=== PATIENT | female | born 1980 | race Caucasian/White ===

== ENCOUNTER → 2020-03-02 11:16 | Outpatient (CLI) | payer OTHER, SELFPAY ==
[2020-03-02 13:30] LABS: Hematocrit 36.8 % (36-46); Hemoglobin 12.3 g/dL (12.0-16.0)
[2020-03-02 14:15] LABS: GTT (PREG) 1 Hour PP 50gm Dose 140 mg/dL (76-139)
== END ==
PROVIDERS: Referring Provider Obstetrics & Gynecology; Visit Provider Obstetrics & Gynecology
DX: Z34.90 Encounter for supervision of normal pregnancy, unspecified, unspecified trimester (principal)
CPT/HCPCS: 36415; 82950; 85014; 85018

== ENCOUNTER → 2020-03-10 07:09 | Outpatient (CLI) | payer OTHER, SELFPAY ==
[2020-03-10 09:54] LABS: Glucose 1 Hour Gest 157 mg/dL (76-180)
[2020-03-10 10:31] LABS: Glucose Fasting Gestational 68 mg/dL (76-95)
[2020-03-10 10:32] LABS: Glucose 2 Hour Gest 121 mg/dL (76-155)
[2020-03-10 11:01] LABS: Glucose Tol Interp,Gestational INTERPRETATION
[2020-03-10 12:12] LABS: Glucose 3 Hour Gest 96 mg/dL (76-140)
== END ==
PROVIDERS: Referring Provider Obstetrics & Gynecology; Visit Provider Obstetrics & Gynecology
DX: O99.810 Abnormal glucose complicating pregnancy (principal)
CPT/HCPCS: 36415; 82951; 82952

== ENCOUNTER → 2020-05-05 11:01 | Outpatient (CLI) | payer OTHER, SELFPAY ==
[2020-05-06 08:13] LABS: Strep Grp B PCR NEG for Grp B Strep
== END ==
PROVIDERS: PCP Obstetrics & Gynecology; Visit Provider Obstetrics & Gynecology
DX: Z34.83 Encounter for supervision of other normal pregnancy, third trimester (principal); Z3A.36 36 weeks gestation of pregnancy
CPT/HCPCS: 87653

== ENCOUNTER → 2020-05-21 08:16 | Outpatient (CLI) | payer OTHER, SELFPAY ==
[2020-05-22 02:26] LABS: COVID19 Sendout Not Detected (Not Detect)
== END ==
PROVIDERS: PCP Obstetrics & Gynecology; Visit Provider Physician Assistant
DX: Z11.59 Encounter for screening for other viral diseases (principal)
CPT/HCPCS: 87635

== ENCOUNTER 2020-05-24 19:16 | Inpatient (IN) | payer OTHER, SELFPAY ==
[2020-05-24 20:12] LABS: Add Manual Diff / Slide Review NO; Basophils Absolute Auto 0 /uL (0-100); Basophils Percent Auto 0.4 % (0-2); Eosinophils Absolute Auto 100 /uL (0-450); Eosinophils Percent Auto 0.6 % (2-4); Hematocrit 38.7 % (36-46); Hemoglobin 13.3 g/dL (12.0-16.0); Lymphocytes Absolute Auto 1700 /uL (1100-4500); Lymphocytes Percent Auto 17.9 % (25-40); Mean Corpuscular HGB Conc 34.3 % (30-36); Mean Corpuscular Hemoglobin 34.3 PG (26-34); Mean Corpuscular Volume 100.1 fL (80-100); Monocytes Absolute Auto 800 /uL (0-900); Monocytes Percent Auto 8.1 % (3-14); Neutrophils Absolute Auto 7100 /uL (1500-7000); Platelet Count 212 X10^3/uL (150-400); Red Blood Cell Count 3.87 X10^6/uL (4.0-5.2); Red Cell Distribution Width 13.2 % (11.6-14.8); White Blood Cell Count 9.7 X10^3/uL (4.5-11.0)
[2020-05-24] MEDS: miSOPROStoL 25 MCG TABLET VAG (20:52)
[2020-05-25 01:32] VITALS: BP 111/62
[2020-05-25] MEDS: LACTATED RINGERS 1,000 ML 125 ML IV ×3 (07:53→18:01)
[2020-05-25] MEDS: OXYTOCIN PREMIX 30 UNIT/500 ML PLAST..BAG IV (07:53)
--- NOTE | 2020-05-25 20:07 | P.HPOB_ITS ---
OB HPI Date/Time Date of admission: 05/24/20 Date Patient Seen: 05/25/20 Time Patient Seen: 07:15 History of Present Condition Chief complaint: Induction of Labor : 4 Para: 1 Estimated Date of Delivery: 05/28/20 Estimated Gestational Age (weeks): 39+4 Narrative: Nyasia Colvin is a 39 year old female 4 para 1 at 39-,4/7 weeks gestation status post cervical ripening with Cytotec x1 last evening, here for Pitocin induction of labor due to advanced maternal age. Indications Indication for induction OB: other (Advanced maternal age) History of Present care: good care, initiated at week # (9), number of visits (11) and pounds weight gain (34) Dating criteria: LMP confirmed by 1st trimester US Ultrasounds: normal 1st trimester US and normal mid trimester US Obstetrical complications: none Medical complications: none Preadmission Labs Blood type: A (+) positive -: Antibody screen: negative, GBS status: negative, HBsAG: negative, HIV: negative and RPR/VDLR: negative -: Chlamydia screen: not detected and Gonorrhea screen: not detected -: Rubella: not immune and Varicella: unknown HCT: 38.7 PAP: Normal Cell-free DNA: Normal male AFP neg 1 hr GTT: 140 Prior (ies) History: 2 SAB 1 Evaluation Evaluation Baseline heart rate: 115 Variability: Moderate (11-25) monitor accelerations: Present monitor decelerations: Absent Contraction Frequency (minutes): 3 Uterine Contraction Intensity: Mild Category of Tracing: Reactive Cervical dilation (cm): 1 Cervical effacement (%): 80 station: -1 Laboratory results: Laboratory Tests 05/24/20 05/24/20 19:45 19:45 WBC 9.7 RBC 3.87 L Hgb 13.3 Hct 38.7 MCV 100.1 H MCH 34.3 H MCHC 34.3 RDW 13.2 Plt Count 212 Neut % (Auto) 73.0 Lymph % (Auto) 17.9 L [place] % (Auto) 8.1 Eos % (Auto) 0.6 L Baso % (Auto) 0.4 Neut # (Auto) 7100 H Lymph # (Auto) 1700 [place] # (Auto) 800 Eos # (Auto) 100 Baso # (Auto) 0 Blood Type A Positive Antibody Screen Negative PFSH Medical History (Updated 03/22/20 @ 19:22 by Anita Chow) Advanced maternal age risk, currently (Acute) Chicken pox (Resolved ~1984) Conceived by in vitro fertilization (Acute ~09/11/19) Headache (Chronic ~2018) Infertility (Resolved ~2017) Mammogram normal (Acute ~03/2019) (spontaneous vaginal delivery) (Acute ~01/26/10) Surgical History (Updated 03/22/20 @ 19:22 by Anita Chow) Anesthesia (Resolved) History of dilatation and curettage (Acute ~01/2009) In vitro fertilization (Resolved ~08/2019) Family History (Updated 03/22/20 @ 19:25 by Anita Chow) Father No problems noted. Mother No problems noted. Grandfather Diabetes mellitus MVA (motor vehicle accident) Recurrent strokes Grandmother No problems noted. 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: [employer] special reta needs: No do you feel safe at home: Yes Smoking Status: Never smoker Tobacco: How many years used: 15 second hand exposure: No alcohol intake: former (pre- : occasional ) substance use type: does not use Meds Home Medications and Allergies Home Medications Medication Instructions Recorded Confirmed Type aspirin 81 mg tablet,delayed 81 mg PO DAILY 02/17/20 05/25/20 History release Double Electric breast Pump and #1 each 03/05/20 05/25/20 Rx Supplies vitamin with calcium 1 tab PO DAILY #90 tab 05/05/20 05/25/20 Rx no.72-iron 27 mg-folic acid 1 mg tablet Allergies Allergy/AdvReac Type Severity Reaction Status Date / Time No Known Drug Allergies Allergy Verified 05/19/20 16:05 Exam Vital Signs (past 8 hours): Generally: Patient comfortable with contractions Lungs: Clear to auscultation bilaterally Cardiovascular: Regular rate and rhythm Fundal height: 40 cm Estimated weight: 7 lb Extremities: No edema, 1+ DTRs Objective Labs Result Diagrams: 05/24/20 19:45 Labs: Laboratory Results - last 24 hr 05/24/20 05/24/20 19:45 19:45 WBC 9.7 RBC 3.87 L Hgb 13.3 Hct 38.7 MCV 100.1 H MCH 34.3 H MCHC 34.3 RDW 13.2 Plt Count 212 Neut % (Auto) 73.0 Lymph % (Auto) 17.9 L [place] % (Auto) 8.1 Eos % (Auto) 0.6 L Baso % (Auto) 0.4 Neut # (Auto) 7100 H Lymph # (Auto) 1700 [place] # (Auto) 800 Eos # (Auto) 100 Baso # (Auto) 0 Blood Type A Positive Antibody Screen Negative Assessment and Plan Assessment and Plan Assessment and Plan narrative: Assessment: 39-year-old 4 para 1 at 39-,4/7 weeks gestation status post Cytotec x1, for Pitocin induction due to advanced maternal age GBS negative 1 hour glucose tolerance test 140, 3 hour glucose tolerance test normal Plan: Pitocin per protocol 2 Epidural as necessary Artificial rupture of membranes when able Expected management to spontaneous vaginal delivery Time Spent with Patient Total time spent with greater than 50% in coordination of care (as documented) a t patient's floor/unit and/or counseling patient:: 15-24 minutes
--- NOTE | 2020-05-25 20:15 | PM.OBPRVD ---
Events: Labor Induction Labor & Delivery Delivery date: 05/25/20 Cervical ripening method: per misoprostal protocol Induction method: per pitocin protocol Delivery augmentation: rupture of membranes Delivery monitor: external FHT and external uterine Route of delivery: Episiotomy description: None L&D Laceration Description: Superficial (Left labial) Delivery repair: chromic Estimated blood loss (mL): 150 Anesthesia type: Epidural Complications: None Narrative: Patient complete and pushed with 3 contractions. At 7:46 p.m., a live male delivered spontaneously in the KAL[facility] presentation, over an intact perineum. The remainder of the body delivered without difficulty. No nuchal cord. The was placed on mom's abdomen. After the cord stopped pulsing, the cord was double clamped and cut. Cord bloods were obtained. The placenta delivered intact with a three-vessel cord at 7:56 p.m.. Pitocin was given in the IV fluids prior to the placental delivery. A superficial left labial laceration was noted and repaired with 4-0 chromic in the usual fashion. Hemostasis was achieved. Estimated blood loss 150 cc. Apgars 9 at 1 minute and 9 at 5 minutes. . Epidural analgesia. Mom and infant stable to recovery. Baby 1: Infant gender: Male Presentation: vertex Placenta delivery description: Spontaneous cord vessel description: 3 Vessels score (1 min): 9 score (5 min): 9 Plan for aftercare: To routine care
[2020-05-25] MEDS: LANOLIN OINT 7 GM 1 APPLIC TOP (23:21)
[2020-05-25] MEDS: DERMOPLAST SPRAY 20% 60 ML 1 SPRAY TOP (23:21)
[2020-05-25] MEDS: IBUPROFEN 600 MG TABLET PO (23:22)
[2020-05-26 05:48] LABS: Hematocrit 35.6 % (36-46); Hemoglobin 12.2 g/dL (12.0-16.0)
[2020-05-26] MEDS: DOCUSATE 100 MG CAPSULE PO (07:53)
[2020-05-26 07:54] VITALS: TEMP 36.7
[2020-05-26] MEDS: PRENATAL VIT,CALC/IRON/FOLIC 1 TABLET 1 TAB PO (07:54)
[2020-05-26] MEDS: IBUPROFEN 600 MG TABLET PO ×2 (07:54→14:28)
[2020-05-26 12:30] VITALS: BP 129/85; PULSE 64; RESP 16; TEMP 36.9
[2020-05-26] MEDS: MEASLES,MUMPS,RUBELLA VACC/PF 0.5 ML VIAL SUBCUT (17:38)
== END 2020-05-26 18:00 | disposition home or self-care (01) | DRG 807 ==
PROVIDERS: Admitting Provider Obstetrics & Gynecology; PCP Obstetrics & Gynecology; Referring Provider Obstetrics & Gynecology; Visit Provider Obstetrics & Gynecology
DX: O70.0 First degree perineal laceration during delivery (principal); Z37.0 Single live birth; Z3A.39 39 weeks gestation of pregnancy
CPT/HCPCS: 36415; 59050; 59200; 59410; 85014; 85018; 85025; 86850; 86900; 86901; G0379; J2590

== ENCOUNTER → 2021-08-17 12:52 | Outpatient (CLI) | payer OTHER, SELFPAY ==
--- NOTE | 2021-08-17 13:00 | DI.US.S_ITS ---
PROCEDURE: US PELVIC COMPLETE INDICATIONS: IUD CHECK TECHNIQUE: Real-time scanning was performed of the pelvic organs, with image documentation. Additional endovaginal scanning was necessary due to incomplete visualization of the adnexal and endometrial structures by transabdominal scanning. COMPARISON: None. FINDINGS: Uterus: Uterus is retroverted and normal in size at 9.4 x 6.3 x 5.3 cm. The myometrium is homogeneous. The endometrium measures 1-2 mm combined thickness. The IUD is seen at its expected location. Ovaries: The right ovary measures 1.9 x 1.2 x 3 cm. The left ovary measures 3.3 x 1.6 x 3 cm. The ovaries have a normal sonographic appearance. Within the left ovary, there is a 2.3 x 1.6 x 1.2 cm complex cyst, with surrounding increased vascularity. No adnexal masses are seen. Other: No pathologic free abdominal or pelvic fluid. IMPRESSION: The IUD is seen in place. There is a likely 2.3 cm hemorrhagic cyst of the left ovary. If it would be clinically appropriate, a followup pelvic ultrasound could be considered in 6 weeks to assure resolution/ improvement. We strive to produce accurate, complete, and clear reports of imaging services. To assist us in improving patient care, this report was composed using standard report templates and voice recognition software. Therefore, it may contain abnormal punctuation, insertions and/or omissions. Occasional wrong-word or sound-alike substitutions may occur. Though we review the report and make efforts to correct it, we do recommend that the report be read carefully in proper context to recognize any text inaccuracies. Dictated by: Antonio Cardenas M.D. on 08/17/2021 at 13:39 Approved by: Antonio Cardenas M.D. on 08/17/2021 at 13:40
== END ==
PROVIDERS: PCP Registered Nurse Diabetes Educator; Referring Provider Registered Nurse Diabetes Educator; Visit Provider Registered Nurse Diabetes Educator
DX: Z97.5 Presence of (intrauterine) contraceptive device (principal)
CPT/HCPCS: 76830; 76856

== ENCOUNTER → 2021-09-08 09:26 | Outpatient (CLI) | payer OTHER, SELFPAY ==
--- NOTE | 2021-09-08 09:27 | DI.RAD.S_ITS ---
PROCEDURE: XR FOOT LT MIN 3V INDICATIONS: Left foot pain TECHNIQUE: 3 views of the foot were acquired. COMPARISON: None. FINDINGS: Bones: No fractures or dislocations. No suspicious bony lesions. Small plantar calcaneal enthesophyte. Accessory navicular and cuboid ossicle are seen. Soft tissues: No tibiotalar joint effusion. IMPRESSION: No acute osseous abnormality. Dictated by: Denilson Lewis M.D. on 09/08/2021 at 10:17 Approved by: Denilson Lewis M.D. on 09/08/2021 at 10:19
== END ==
PROVIDERS: PCP Registered Nurse Diabetes Educator; Referring Provider Registered Nurse Diabetes Educator; Visit Provider Registered Nurse Diabetes Educator
DX: M79.672 Pain in left foot (principal)
CPT/HCPCS: 73630

== ENCOUNTER → 2021-09-24 16:41 | Outpatient (CLI) | payer OTHER, SELFPAY ==
--- NOTE | 2021-09-24 16:43 | DI.MRI.S_ITS ---
PROCEDURE: MRFOOT LT WO CON INDICATIONS: left foot pain/accessory ossicles TECHNIQUE: Noncontrast sagittal T1 spin echo and T2 fast spin echo with fat saturation, long-axis T1 spin echo and T2 fast spin echo with fat saturation, short-axis T1 spin echo and T2 fast spin echo with fat saturation through the forefoot. COMPARISON: [facility], CR, XR FOOT LT MIN 3V, 09/08/2021, 9:18. FINDINGS: Image quality: Excellent. Bones and joints: There is osseous edema within the 2nd metatarsal shaft with a thin nondisplaced transverse linear fracture line in the proximal shaft. Surrounding soft tissue edema is seen and there is mild periosteal new bone formation. The alignment is anatomic. Mild osseous edema is seen within the base of the 3rd metatarsal as well as in these 2nd and 3rd cuneiform bones. The remaining visualized osseous structures are intact. Mild degenerative changes are seen at the 1st metatarsophalangeal joint. Soft tissues: The visualized plantar foot muscles demonstrate normal bulk. Soft tissue edema is seen surrounding the proximal 2nd metatarsal. Visualized flexor and extensor tendons appear intact, without tenosynovitis. The distal insertions of the peroneus brevis and longus tendons appear intact. The principal Lisfranc ligament appears intact. Trace adventitial bursal fluid collection plantar to the 1st metatarsophalangeal joint. Sagittal images demonstrate no evidence for plantar plate tears. IMPRESSION: Nondisplaced transverse fracture of the proximal 2nd metatarsal shaft with surrounding osseous and soft tissue edema and mild periosteal new bone formation, most likely secondary to repetitive stress. Mild osseous edema within the 2nd 3rd cuneiform is and the 3rd metatarsal base may be reactive or related to repetitive stress. Dictated by: Michele Coyne M.D. on 09/27/2021 at 9:05 Approved by: Michele Coyne M.D. on 09/27/2021 at 9:12
== END ==
PROVIDERS: PCP Registered Nurse Diabetes Educator; Referring Provider Registered Nurse Diabetes Educator; Visit Provider Registered Nurse Diabetes Educator
DX: S92.325A Nondisplaced fracture of second metatarsal bone, left foot, initial encounter for closed fracture (principal); M79.672 Pain in left foot
CPT/HCPCS: 73718

== ENCOUNTER → 2021-10-07 08:14 | Outpatient (CLI) | payer OTHER, SELFPAY ==
--- NOTE | 2021-10-07 08:17 | DI.US.S_ITS ---
PROCEDURE: US PELVIC COMPLETE INDICATIONS: ovarian cyst TECHNIQUE: Real-time scanning was performed of the pelvic organs, with image documentation. Additional endovaginal scanning was necessary due to incomplete visualization of the adnexal and endometrial structures by transabdominal scanning. COMPARISON: [facility], , US PELVIC COMPLETE, 08/17/2021, 13:01. FINDINGS: Uterus: Uterus is anteverted and measures 10.2 x 5 x 6.8 cm in size. The myometrium is homogeneous. The endometrium measures 9.4 mm combined thickness. Intrauterine device is noted in its normal central endometrial location. No endometrial mass or fluid is seen. Ovaries: The right ovary measures 3.1 x 2.2 x 2.8 cm. The left ovary measures 1.9 x 1.6 x 1.3 cm. The ovaries have a normal sonographic appearance. Less than 12 follicles can be seen in each ovary. No adnexal masses are seen. 1.9 x 2.1 x 2 cm simple cyst is seen in right ovary. Other: No pathologic free abdominal or pelvic fluid. IMPRESSION: 1. Enlarged uterus without discrete uterine fibroid. No endometrial mass or fluid. Intrauterine device is seen in its normal central endometrial location. 2. Simple cyst in right ovary as above. No solid appearing ovarian lesion normal appearing left ovary. We strive to produce accurate, complete, and clear reports of imaging services. To assist us in improving patient care, this report was composed using standard report templates and voice recognition software. Therefore, it may contain abnormal punctuation, insertions and/or omissions. Occasional wrong-word or sound-alike substitutions may occur. Though we review the report and make efforts to correct it, we do recommend that the report be read carefully in proper context to recognize any text inaccuracies. Dictated by: Juan Madrid M.D. on 10/07/2021 at 11:36 Approved by: Juan Madrid M.D. on 10/07/2021 at 11:45
== END ==
PROVIDERS: PCP Registered Nurse Diabetes Educator; Referring Provider Registered Nurse Diabetes Educator; Visit Provider Registered Nurse Diabetes Educator
DX: N83.291 Other ovarian cyst, right side (principal); N85.2 Hypertrophy of uterus; Z97.5 Presence of (intrauterine) contraceptive device
CPT/HCPCS: 76830; 76856

== ENCOUNTER → 2021-10-22 12:50 | Outpatient (CLI) | payer OTHER, SELFPAY ==
--- NOTE | 2021-10-22 12:51 | DI.MG.S_ITS ---
BILATERAL DIGITAL SCREENING MAMMOGRAM 3D/2D WITH CAD: 10/22/2021 CLINICAL: Routine screening. Comparison is made to exam dated: 03/20/2019 mammogram - out side. The tissue of both breasts is heterogeneously dense. This may lower the sensitivity of mammography. Current study was also evaluated with a Computer Aided Detection (CAD) system. No significant masses, calcifications, or other findings are seen in either breast. There has been no significant interval change. IMPRESSION: NEGATIVE There is no mammographic evidence of malignancy. A 1 year screening mammogram is recommended. This exam was interpreted at Station ID: [id number]. NOTE: For mammograms, a report in lay terms will be sent to the patient. Approximately 15% of breast malignancies will not be visualized mammographically. In the management of a palpable breast mass, a negative mammogram must not discourage biopsy of a clinically suspicious lesion. Electronically Signed By: Sanjuana hurtado/debra:10/25/2021 09:44:00 letter sent: Normal Exam ACR BI-RADS Category 1: Negative [id number]
== END ==
PROVIDERS: PCP Registered Nurse Diabetes Educator; Referring Provider Registered Nurse Diabetes Educator; Visit Provider Registered Nurse Diabetes Educator
DX: Z12.31 Encounter for screening mammogram for malignant neoplasm of breast (principal)
CPT/HCPCS: 77063; 77067

== ENCOUNTER → 2021-11-09 09:56 | Outpatient (CLI) | payer OTHER, SELFPAY | PROVIDERS: PCP Registered Nurse Diabetes Educator; Referring Provider Registered Nurse Diabetes Educator; Visit Provider Registered Nurse Diabetes Educator | DX: S92.325A Nondisplaced fracture of second metatarsal bone, left foot, initial encounter for closed fracture (principal); X58.XXXA Exposure to other specified factors, initial encounter | CPT/HCPCS: 77080 ==

== ENCOUNTER → 2022-10-03 11:16 | Outpatient (CLI) | payer OTHER, SELFPAY ==
--- NOTE | 2022-10-03 | DI.MG.S_ITS ---
BILATERAL DIGITAL SCREENING MAMMOGRAM 3D/2D WITH CAD: 10/03/2022 CLINICAL: Routine screening. Comparison is made to exams dated: 10/22/2021 mammogram - [facility] and [facility]20/[facility]. Both breasts are heterogeneously dense, which may obscure small masses (category c / 51-75% glandular tissue). Current study was also evaluated with a Computer Aided Detection (CAD) system. No significant masses, calcifications, or other findings are seen in either breast. There has been no significant interval change. IMPRESSION: NEGATIVE There is no mammographic evidence of malignancy. A 1 year screening mammogram is recommended. Based on the Tyrer Cuzick model (a risk assessment model) the patient's lifetime risk is 13.7% and her 10 year risk is 2.2%. According to the ACR, ACS, and NCCN guidelines, an annual breast MRI exam along with mammogram is recommended if the patient's lifetime risk is 20% or greater. This exam was interpreted at Station ID: [id number]. NOTE: For mammograms, a report in lay terms will be sent to the patient. Approximately 15% of breast malignancies will not be visualized mammographically. In the management of a palpable breast mass, a negative mammogram must not discourage biopsy of a clinically suspicious lesion. Electronically Signed By: Gilberto joseph/debra:10/03/2022 14:32:04 letter sent: Normal Exam ACR BI-RADS Category 1: Negative [id number]
== END ==
PROVIDERS: PCP Registered Nurse Diabetes Educator; Referring Provider Registered Nurse Diabetes Educator; Visit Provider Registered Nurse Diabetes Educator
DX: Z12.31 Encounter for screening mammogram for malignant neoplasm of breast (principal)
CPT/HCPCS: 77063; 77067

== ENCOUNTER → 2023-05-24 08:02 | Outpatient (CLI) | payer OTHER, SELFPAY ==
[2023-05-24 08:51] LABS: Hematocrit 39.8 % (36-46); Hemoglobin 13.7 g/dL (12.0-16.0); Mean Corpuscular HGB Conc 34.3 % (30-36); Mean Corpuscular Hemoglobin 34.1 PG (26-34); Mean Corpuscular Volume 99.5 fL (80-100); Platelet Count 266 X10^3/uL (150-400); Red Cell Distribution Width 12.9 % (11.6-14.8); White Blood Cell Count 5.3 X10^3/uL (4.5-11.0)
[2023-05-24 09:14] LABS: Hemoglobin A1C% w Est Avg Glu 5.1 % (4.0-6.0)
[2023-05-24 09:15] LABS: Alanine Aminotransferase 19 IU/L (<35); Albumin Globulin Ratio 1.3 (1.0-2.8); Alkaline Phosphatase 57 U/L (38-126); Aspartate Aminotransferase 23 IU/L (14-36); BUN Creatinine Ratio 21.3 (6-22); Bilirubin Total 0.4 mg/dL (0.2-1.3); Blood Urea Nitrogen 16 mg/dL (7-17); Calcium 9.5 mg/dL (8.4-10.2); Carbon Dioxide 24 mmol/L (22-32); Chloride 102 mmol/L (98-107); Cholesterol 179 mg/dL (140-199); Estimated Glomerular Filt Rate > 60 mL/min (>60); Glucose 87 mg/dL (70-100); HDL Cholesterol 83 mg/dL (40-60); HEMOLYSIS 23 (0-50); LDL Cholesterol Calculated 85 mg/dL (<100); Sodium 135 mmol/L (137-145); Triglycerides 56 mg/dL (35-150)
[2023-05-24 09:17] LABS: Potassium 5.7 mmol/L (3.4-5.1)
[2023-05-24 09:33] LABS: Free T4, Direct Thyroxine 0.95 ng/dL (0.78-2.19)
[2023-05-24 09:47] LABS: Thyroid Stimulating Hormone 2.43 uIU/mL (0.47-4.68)
== END ==
PROVIDERS: PCP Registered Nurse Diabetes Educator; Referring Provider Registered Nurse Diabetes Educator; Visit Provider Registered Nurse Diabetes Educator
DX: R53.83 Other fatigue (principal); R45.86 Emotional lability; F41.9 Anxiety disorder, unspecified
CPT/HCPCS: 36415; 80053; 80061; 83036; 84439; 84443; 85027

== ENCOUNTER → 2023-05-29 13:45 | Outpatient (CLI) | payer OTHER, SELFPAY ==
[2023-05-29 14:58] LABS: BUN Creatinine Ratio 20.7 (6-22); Blood Urea Nitrogen 19 mg/dL (7-17); Calcium 9.4 mg/dL (8.4-10.2); Carbon Dioxide 27 mmol/L (22-32); Chloride 99 mmol/L (98-107); Estimated Glomerular Filt Rate > 60 mL/min (>60); Glucose 80 mg/dL (70-100); HEMOLYSIS < 15 (0-50); Potassium 4.9 mmol/L (3.4-5.1); Sodium 134 mmol/L (137-145)
== END ==
PROVIDERS: PCP Registered Nurse Diabetes Educator; Referring Provider Registered Nurse Diabetes Educator; Visit Provider Registered Nurse Diabetes Educator
DX: E87.5 Hyperkalemia (principal)
CPT/HCPCS: 36415; 80048

== ENCOUNTER → 2023-07-07 15:35 | Outpatient (CLI) | payer OTHER, SELFPAY | PROVIDERS: PCP Registered Nurse Diabetes Educator; Visit Provider Physician Assistant | DX: R30.0 Dysuria (principal) | CPT/HCPCS: 87077; 87086; 87186 ==

== ENCOUNTER → 2023-08-09 08:23 | Outpatient (CLI) | payer OTHER, SELFPAY | PROVIDERS: PCP Registered Nurse Diabetes Educator; Visit Provider Nurse Practitioner Family | DX: R30.0 Dysuria (principal) | CPT/HCPCS: 87077; 87086; 87186 ==

== ENCOUNTER → 2025-05-14 07:59 | Outpatient (CLI) | payer OTHER, SELFPAY ==
[2025-05-14 08:58] LABS: Hematocrit 38.4 % (36-46); Hemoglobin 13.1 g/dL (12.0-16.0); Mean Corpuscular HGB Conc 34.1 % (30-36); Mean Corpuscular Hemoglobin 34.0 PG (26-34); Mean Corpuscular Volume 99.9 fL (80-100); Platelet Count 236 X10^3/uL (150-400)
[2025-05-14 09:21] LABS: Alanine Aminotransferase 15 IU/L (<35); Albumin 4.2 g/dL (3.5-5.0); Albumin Globulin Ratio 1.6 (1.0-2.8); Alkaline Phosphatase 70 U/L (38-126); Blood Urea Nitrogen 13 mg/dL (7-17); Calcium 9.1 mg/dL (8.4-10.2); Carbon Dioxide 26 mmol/L (22-32); Chloride 103 mmol/L (98-107); Cholesterol 164 mg/dL (140-199); Estimated Glomerular Filt Rate > 60 mL/min (>60); Globulin 2.7 g/dL (1.7-4.1); Glucose 85 mg/dL (70-99); HDL Cholesterol 85 mg/dL (40-60); HEMOLYSIS < 15 (0-50); Potassium 4.9 mmol/L (3.4-5.1); Sodium 136 mmol/L (137-145); Total Protein 6.9 g/dL (6.3-8.2); Triglycerides 56 mg/dL (35-150)
[2025-05-14 09:50] LABS: TSH w/ Reflex to FT4 6.64 uIU/mL (0.47-4.68)
[2025-05-14 10:14] LABS: Free T4, Direct Thyroxine 0.75 ng/dL (0.78-2.19)
== END ==
PROVIDERS: PCP Registered Nurse Diabetes Educator; Referring Provider Registered Nurse Diabetes Educator; Visit Provider Registered Nurse Diabetes Educator
DX: Z00.00 Encounter for general adult medical examination without abnormal findings (principal)
CPT/HCPCS: 36415; 80053; 80061; 84439; 84443; 85027